=== PATIENT | female | born 1965 | race African-American/Black ===

== ENCOUNTER 2018-07-11 13:51 | Observation (INO) | payer OTHER ==
--- NOTE | 2018-07-11 13:59 | PDOC ---
History of Present Illness - General Chief Complaint: Chest Pain Stated Complaint: CHEST PAIN Time Seen by Provider: 07/11/18 13:59 History Source: Patient, Spouse Exam Limitations: No Limitations - History of Present Illness Initial Comments: Pt, with PMH of "an arrhythmia," HTN and asthma, presents with complaints of L- sided headache, L-body numbness, R-sided blurry vision, palpitations, and L- sided chest pain. The pt states these symptoms started Friday morning (07/06/2018 ) and have worsened in severity. The headache is intermittent, lasts about 1 hour, is throbbing in quality, and is limited to the L side of her head. The head pain is associated with light-headedness, R-sided blurry vision ("like objects are wavy") and L-sided numbness over her face and L-side of body. The chest pain is intermittent, is sharp, lasts about one minute, and is worse with deep breaths. She has also noticed palpitations that come and go. She has never had this pain before, has no history of migraines or vision changes, and the chest "tightness" is different from her usual asthma symptoms. She is not on any blood thinner medications. She denies any fevers/chills, LOC, falls or recent trauma, weakness of her muscles, SOB, abdominal pain, urinary symptoms, diarrhea, or joint/leg swelling. 07/11/18 18:10 07/11/18 18:23 Past History - Travel Traveled outside of the country in the last 30 days: No Close contact w/someone who was outside of country & ill: No - Past Medical History Allergies/Adverse Reactions: Allergies Allergy/AdvReac Type Severity Reaction Status Date / Time ondansetron HCl Allergy Intermediate Rash Verified 07/11/18 13:53 [From Zofran (as hydrochloride)] Home Medications: Ambulatory Orders Amlodipine Besylate [Norvasc -] 25 mg PO DAILY 06/08/16 Metoprolol Tartrate 10 mg PO DAILY 06/08/16 Anemia: Yes Asthma: Yes Cancer: No Cardiac Disorders: Yes (PALPITATIONS) CVA: No COPD: No DVT: No Dementia: No Diabetes: No GI Disorders: No Disorders: No HTN: Yes Hypercholesterolemia: No Liver Disease: No Seizures: No Thyroid Disease: No - Surgical History Abdominal Surgery: Yes (RT. F.TUBE REMOVED) Orthopedic Surgery: Yes (ANKLE SX RIGHT) - Reproductive History (#): 3 Para: 1 Therapeutic (s) & number: Yes Spontaneous : 1 - Immunization History Immunization Up to Date: Yes - Suicide/Smoking/Psychosocial Hx Smoking Status: Yes Smoking History: Current every day smoker Have you smoked in the past 12 months: Yes Number of Cigarettes Smoked Daily: 7 Information on smoking cessation initiated: Yes 'Breaking Loose' booklet given: 07/11/18 Hx Alcohol Use: No Drug/Substance Use Hx: No Substance Use Type: None Hx Substance Use Treatment: Yes (21 YRS AGO) Review of Systems - Review of Systems Able to Perform ROS?: Yes Is the patient limited Kyrgyz proficient: No Constitutional: Yes: Weight Stable. No: Chills, Diaphoresis, Fever, Loss of Appetite, Weakness HEENTM: Yes: Blurred Vision, Recent change in vision. No: Eye Pain, Double Vision, Nose Congestion, Hearing Loss, Throat Swelling, Difficulty Swallowing Respiratory: No: Cough, Orthopnea, Shortness of Breath Cardiac (ROS): Yes: Chest Pain ("pulling" chest pain/tightness), Irregular Heart Rate (history of "arrhythmia"), Lightheadedness, Palpitations, Chest Tightness. No: Edema, Syncope ABD/GI: No: Abdominal Distended, Blood Streaked Bowels, Constipated, Diarrhea, Nausea, Poor Appetite, Poor Fluid Intake, Vomiting, Indigestion : No: Burning, Dysuria, Frequency, Hematuria, Pain, Urgency Musculoskeletal: No: Back Pain, Joint Pain, Neck Pain Integumentary: No: Erythema, Rash Neurological: Yes: Headache, Numbness. No: Paresthesia, Pre-Existing Deficit, Seizure, Tingling, Tremors, Weakness, Unsteady Gait, Ataxia, Dizziness Psychiatric: No: Sleep Pattern Change, Change in Appetite Endocrine: No: Increased Urine, Change in Weight Hematologic/Lymphatic: No: Anemia, Blood Clots, Easy Bleeding All Other Systems: Reviewed and Negative *Physical Exam - Vital Signs Last Vital Signs Temp Pulse Resp BP Pulse Ox 98.0 F 92 H 18 188/91 99 07/11/18 13:53 07/11/18 13:53 07/11/18 13:53 07/11/18 13:53 07/11/18 13:53 - Physical Exam General Appearance: Yes: Nourished, Appropriately Dressed, Moderate Distress ( Pt can ambulate with help of , HTN, complaining of head pain), Obese HEENT: positive: EOMI, SYLVIA, Normal ENT Inspection, Normal Voice, Symmetrical, Pharynx Normal, Hearing Grossly Normal. negative: Photophobia, Scleral Icterus (R), Scleral Icterus (L), Tonsillar Exudate, Tonsillar Erythema Neck: positive: Trachea midline, Normal Thyroid, Supple. negative: Tender, Rigid, Carotid bruit, Decreased range of motion, Stridor, Lymphadenopathy (R), Lymphadenopathy (L), Rigidity Respiratory/Chest: positive: Chest Tender (reproducible chest tenderness over L superior chest wall (at apex). Tenderness with deep breaths. ), Lungs Clear, Normal Breath Sounds. negative: Respiratory Distress, Accessory Muscle Use Cardiovascular: positive: Regular Rhythm, Regular Rate, S1, S2. negative: Edema , JVD, Murmur Vascular Pulses: Carotid (R): 4+, Carotid (L): 4+ Gastrointestinal/Abdominal: positive: Normal Bowel Sounds, Flat, Soft. negative : Tender, Organomegaly, Pulsatile Mass, Guarding, Rebound, Tenderness Rectal Exam: positive: deferred Lymphatic: negative: Adenopathy, Tenderness Musculoskeletal: positive: Normal Inspection. negative: CVA Tenderness, Decreased Range of Motion Extremity: positive: Normal Capillary Refill, Normal Inspection, Normal Range of Motion, Pelvis Stable. negative: Tender, Cyanosis, Pedal Edema, Calf Tenderness, Erythema Integumentary: positive: Normal Color, Dry, Warm. negative: Clammy, Diaphoresis , Petechiae, Rash Neurologic: positive: Fully Oriented, Alert, Normal Mood/Affect, Normal Response , Motor Strength 5/5 (no motor drift in extremities x4. RLE jacquard card lacer strength and hip flexion slightly stronger than LLE. ), Abnormal Cranial NS (Decreased sensation V1-V3 L side of face, decreased sensation to touch over L arm and L leg. ), Numbness, Sensory Deficit. 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, EOM Palsy, Facial Droop, Finger to Nose, Confused, Disoriented, Depressed Affect Heart Score/ECG Review - History History: Slightly suspicious - Electrocardiogram EKG: Normal - Age Age: 45-65 - Risk Factors Risk Factors Heart Score: Yes Hx Hypertension, Yes Smoking History Based on the list above the patient has:: 1-2 risk factors - Troponin Troponin: </= normal limit - Score Heart Score - Total: 2 - ECG Intrepretation Rhythm: Regular Rhythm - Deep Run Deep Run: Normal - P and SD Prominent R with upright T in V1 (true posterior GA): No Delta Wave(s) Present: No WPW: No - QRS Poor R Wave Progression: No Q Wave Present: No - ST and T Early Repolarization: No Non Specific ST-T Wave changes: No Flattened T Waves: No Prolonged Q-T Interval: No Comment:: LVH, no depressed ST segment when looking at T-P interval. ECG unchanged from prior. 07/11/18 19:13 - ECG Impressions Normal ECG: No Non-specific ST Elevation: No Ischemic Changes: No Bradycardia: No Torsades lauren Pointes: No WPW: No Comment:: 07/11/18 19:14 unchanged from prior. ED Treatment Course - LABORATORY CBC & Chemistry Diagram: 07/11/18 14:50 07/11/18 14:50 - RADIOLOGY Radiology Studies Ordered: non-contrast Head CT: no acute intracranial pathology. 07/11/18 16:59 Medical Decision Making - Medical Decision Making Pt seen at bedside, also seen by Dr. Castañeda. Pt complains of blurry vision in R eye , L-sided head pain, decreased sensation over L side of body, and L-sided chest pain. Chest pain is reproducible with palpation over L chest wall. ECG showed LVH. CBC, CMP, troponin, UA + urine preg, portable chest x-ray, and non- contrast head CT ordered. CBC and CMP WNL (slightly elevated alk phos, which is non-specific). Troponin negative, cardiac cause/ACS unlikely. Urine b-hcg and UA negative for and infection. Pt going to CT scan now. 07/11/18 16:19 CT scan showed no acute pathology. Ordered 325 mg PO aspirin. Will call neurology for consult (Dr. Mcwilliams) and admit for observation. Sending blog and paging Dr. Mcwilliams. 07/11/18 16:58 Dr. Mcwilliams suggested 325 mg PO aspirin and MRI. He will follow the pt. Spoke to hospitalist, who will admit to Tele/Obs (attending Dr. Hartley). MRI able to take pt to MRI now. Provided 1 mg ativan for sedation (pt had prior MRI and was unable to tolerate). 07/11/18 18:08 Hospitalist at bedside and pt being taken for MRI. 07/11/18 18:46 *DC/Admit/Observation/Transfer Diagnosis at time of Disposition: Atypical chest pain, Numbness Headache Qualifiers: Headache type: unspecified Headache chronicity pattern: acute headache Intractability: intractable Qualified Code(s): R51 - Headache - Discharge Dispostion Condition at time of disposition: Stable Decision to Admit order: Yes - Referrals Referrals: Neri Muñiz MD [Primary Care Provider] - - Patient Instructions - Post Discharge Activity
--- NOTE | 2018-07-11 14:20 | PDOC ---
Attending Attestation - Resident Resident Name: Priyanka Perez - ED Attending Attestation I have performed the following: I have examined & evaluated the patient, The case was reviewed & discussed with the resident, I agree w/resident's findings & plan, Exceptions are as noted - HPI HPI: 07/11/18 14:40 53y F hx of htn, asthma presents with complaint of chest pain, headache, palpitations, blurry R vision, intermittently for the past 5 days. Pt states she had mid L side dheadache that she cannot expand upon, on friday it was associated wit hblurry right vision, and intermitent sharp chest pain malorie tlasts for a second before resolving. The sypm,toms resolved on friday but reucrred today. Pt endorses palpitations that has been chronic for years malorie tis unchanged. Th epatient denies any associated sob, diaphoresis, n/v, abd pain , back pain, diarrhea, dysuria, frequency, hematuria. No recent head injury, or falls. Currenlty the pt states she has no chest pain. GENERAL: The patient is awake, alert, and fully oriented, Nontoxic - in no acute distress. HEAD: Normocephalic, atraumatic, mild tenderness to her L scalp EYES: extraocular movements intact, sclera anicteric, conjunctiva clear. ENT: Normal voice, Moist mucous membranes NECK: Normal range of motion, supple, no bruits LUNGS: Breath sounds equal, clear to auscultation bilaterally. No wheezes, no rhonchi, no rales. HEART: Regular rate and rhythm, normal S1 and S2 without murmur, rub or gallop. ABDOMEN: Soft, nontender No guarding, no rebound. No CVA tenderness EXTREMITIES: Normal range of motion, no edema. No clubbing or cyanosis. No cords, erythema, or tenderness. 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 SKIN: Warm, Dry, normal turgor, ddx: cva, atypical acs, migraine, afib-->cva will ck ct head, trops, labs, cxr, ekg will give reglan for headache will reassess, anticipate obs & neuro consult Heart Score/ECG Review - ECG Impressions Comment:: 07/11/18 14:57 Twelve-lead EKG was performed and reviewed by me. There is normal sinus rhythm with a normal rate. Rate of 93 Left Ventricular hypertrophy T wave inversion in inferior leads (III, avF) No significant change was compared with EKG dated 04/01/2016
[2018-07-11] MEDS ORDERED: METOCLOPRAMIDE HCL INJECTION 10 MG/2 ML VIAL IVPUSH ONE (14:42)
[2018-07-11] MEDS ORDERED: ACETAMINOPHEN 325 MG TABLET (FP) PO ONE (14:42)
[2018-07-11 14:57] LABS: BASO % 1.1 % (0-2.0); HEMATOCRIT 38.6 % (32.4-45.2); HEMOGLOBIN 12.9 GM/dL (10.7-15.3); LYMPH % 30.8 % (8-40); MCH 28.3 pg (25.7-33.7); MCHC 33.5 g/dl (32.0-36.0); MEAN CELL VOLUME 84.5 fl (80-96); MEAN PLT VOLUME 8.2 fl (7.5-11.1); MONO % 7.8 % (3.8-10.2); NEUT % 56.3 % (42.8-82.8); PLATELET COUNT 279 K/MM3 (134-434); RBC 4.57 M/mm3 (3.60-5.2); RDW 14.8 % (11.6-15.6)
[2018-07-11] MEDS ORDERED: ACETAMINOPHEN 325 MG TABLET (FP) ONE (15:05)
[2018-07-11] MEDS ORDERED: METOCLOPRAMIDE HCL INJECTION 10 MG/2 ML VIAL ONE (15:05)
[2018-07-11 15:17] LABS: ALBUMIN 3.5 g/dl (3.4-5.0); ANION GAP 5 (8-16); BILIRUBIN,TOTAL 0.2 mg/dL (0.2-1.0); BLOOD UREA NITROGEN 11 mg/dL (7-18); CALCIUM 8.6 mg/dL (8.5-10.1); CHLORIDE 108 mmol/L (98-107); CO2 29 mmol/L (21-32); GLUCOSE,RANDOM 92 mg/dL (74-106); POTASSIUM 3.5 mmol/L (3.5-5.1); SGOT/AST 20 U/L (15-37); SGPT/ALT 37 U/L (12-78); SODIUM 142 mmol/L (136-145); TOT PROT 7.5 g/dl (6.4-8.2)
[2018-07-11 15:19] LABS: ALK PHOS 169 U/L (45-117)
[2018-07-11 15:32] LABS: URINE APPEARANCE CLEAR; URINE BILIRUBIN NEGATIVE (<2.0 mg/dL); URINE COLOR LTYELLOW; URINE GLUCOSE (UA) NEGATIVE (NEGATIVE); URINE KETONE NEGATIVE (NEGATIVE); URINE LEUK ESTERASE NEGATIVE (NEGATIVE); URINE NITRITE NEGATIVE (NEGATIVE); URINE PROTEIN NEGATIVE (NEGATIVE); URINE UROBILINOGEN NEGATIVE mg/dL (0.2-1.0)
[2018-07-11 15:45] LABS: HCG,QUALITATIVE URINE NEGATIVE
[2018-07-11 15:47] LABS: EPI CELLS RARE /HPF (FEW); URINE MUCUS RARE
[2018-07-11 15:50] LABS: INR 1.01 (0.83-1.09); PROTHROMBIN TIME (PATIENT) 11.4 SEC (9.7-13.0)
[2018-07-11] MEDS ORDERED: ASPIRIN 325 MG TABLET PO ONE (16:55)
[2018-07-11] MEDS ORDERED: ASPIRIN 325 MG TABLET ONE (17:08)
[2018-07-11] MEDS ORDERED: LORazepam 2 MG/ML SDV VIAL ONE (17:55)
--- NOTE | 2018-07-11 19:58 | HP ---
CHIEF COMPLAINT: blurry vision, numbness, headache, chest pain PCP: Dr. Mean HISTORY OF PRESENT ILLNESS: The patient is a 53 yo f w/ PMH asthma and HTN who comes into the ED c/o headache, chest discomfort, right sided blurred vision and left sided numbness. The patient states that she was in her normal states of health until friday, when she began to have a sharp left sided chest pain and discomfort associated with palpitations. The patient states that she has has similar episodes of sharp pain and palpitations in the past, but the chest discomfort is new. These symptoms resolved spontaneously. This morning at approx. 11 am, the patient felt an acute onset of right sided headache associated with left sided numbness and right sided blurred vision. The numbness extended from her face down to the feet. Patient denies weakness, facial droop, slurred speech, abdominal pain, SOB , fevers, chills. ER course was notable for: (1) CT head negative (2) Neuro consult: ASA 325, MRI brain (3) EKG showing LVH, unchanged from previous Recent Travel: none PAST MEDICAL HISTORY: see HPI PAST SURGICAL HISTORY: Right ankle surgery for fracture repair tubal ligation Social History: Smoking: smokes 10 cigarettes per day for 37 years Alcohol: denies Drugs: former use, quit 25 years ago Family History: diabetes Allergies ondansetron HCl [From Zofran (as hydrochloride)] Allergy (Intermediate, Verified 07/11/18 13:53) Rash HOME MEDICATIONS: Home Medications Medication Instructions Recorded Amlodipine Besylate [Norvasc -] 25 mg PO DAILY 06/08/16 Metoprolol Tartrate 10 mg PO DAILY 06/08/16 REVIEW OF SYSTEMS CONSTITUTIONAL: Absent: fever, chills, diaphoresis, generalized weakness, malaise, loss of appetite, weight change HEENT: Absent: rhinorrhea, nasal congestion, throat pain, throat swelling, difficulty swallowing, mouth swelling, ear pain, eye pain, visual changes CARDIOVASCULAR: Absent: syncope, irregular heart rate, lightheadedness, peripheral edema RESPIRATORY: Absent: cough, shortness of breath, dyspnea with exertion, orthopnea, wheezing, stridor, hemoptysis GASTROINTESTINAL: Absent: abdominal pain, abdominal distension, nausea, vomiting, diarrhea, constipation, melena, hematochezia GENITOURINARY: Absent: dysuria, frequency, urgency, hesitancy, hematuria, flank pain, genital pain MUSCULOSKELETAL: Absent: myalgia, arthralgia, joint swelling, back pain, neck pain SKIN: Absent: rash, itching, pallor HEMATOLOGIC/IMMUNOLOGIC: Absent: easy bleeding, easy bruising, lymphadenopathy, frequent infections ENDOCRINE: Absent: unexplained weight gain, unexplained weight loss, heat intolerance, cold intolerance NEUROLOGIC: Absent: focal weakness, seizure, mental status changes, bladder or bowel incontinence PSYCHIATRIC: Absent: anxiety, depression, suicidal or homicidal ideation, hallucinations. PHYSICAL EXAMINATION Vital Signs - 24 hr 07/11/18 07/11/18 07/11/18 13:53 14:29 18:00 Temperature 98.0 F 98.1 F Pulse Rate 92 H Pulse Rate [ 70 Left Radial] Respiratory 18 17 Rate Blood Pressure 188/91 Blood Pressure 157/76 [Right Arm] O2 Sat by Pulse 99 100 97 Oximetry (%) GENERAL: Awake, alert, and fully oriented, in no acute distress. HEAD: Normal with no signs of trauma. EYES: Pupils equal, round and reactive to light, dilated, extraocular movements intact, sclera anicteric, conjunctiva clear. No lid lag. There are deficits in the medial and lateral aspect of the superior visual field b/l EARS, NOSE, THROAT: Ears normal, nares patent, oropharynx clear without exudates. Moist mucous membranes. NECK: Normal range of motion, supple without lymphadenopathy, JVD, or masses. LUNGS: Breath sounds equal, clear to auscultation bilaterally. No wheezes, and no crackles. No accessory muscle use. HEART: Regular rate and rhythm, normal S1 and S2 without murmur, rub or gallop. ABDOMEN: Soft, nontender, not distended, normoactive bowel sounds, no guarding, no rebound, no masses. No hepatomegaly or splenomegaly. UPPER EXTREMITIES: 2+ pulses, warm, well-perfused. No cyanosis. No clubbing. No peripheral edema. LOWER EXTREMITIES: 2+ pulses, warm, well-perfused. No calf tenderness. No peripheral edema. NEUROLOGICAL: Cranial nerves II-XII intact. Normal speech. Rhomberg sign +, gait not assessed. There is decreased sensation along the whole left side. Strength 5/5 on right and in both LE, 4/5 in LUE PSYCHIATRIC: Cooperative. Good eye contact. Appropriate mood and affect. SKIN: Warm, dry, normal turgor, no rashes or lesions noted, normal capillary refill. Laboratory Results - last 24 hr 07/11/18 07/11/18 07/11/18 14:50 14:50 14:50 WBC 7.0 RBC 4.57 Hgb 12.9 Hct 38.6 MCV 84.5 MCH 28.3 MCHC 33.5 RDW 14.8 Plt Count 279 D MPV 8.2 Absolute Neuts (auto) 3.9 Neutrophils % 56.3 Lymphocytes % 30.8 Monocytes % 7.8 Eosinophils % 4.0 Basophils % 1.1 Nucleated RBC % 0 PT with INR INR PTT (Actin FS) 33.0 Sodium 142 Potassium 3.5 Chloride 108 H Carbon Dioxide 29 Anion Gap 5 L BUN 11 Creatinine 1.0 Creat Clearance w eGFR 58.45 Random Glucose 92 Calcium 8.6 Total Bilirubin 0.2 AST 20 ALT 37 Alkaline Phosphatase 169 H Troponin I < 0.02 Total Protein 7.5 Albumin 3.5 Urine Color Urine Appearance Urine pH Ur Specific [place] Urine Protein Urine Glucose (UA) Urine Ketones Urine Blood Urine Nitrite Urine Bilirubin Urine Urobilinogen Ur Leukocyte Esterase Urine WBC (Auto) Urine RBC (Auto) Ur Epithelial Cells Urine Mucus Urine HCG, Qual 07/11/18 07/11/18 15:24 15:43 WBC RBC Hgb Hct MCV MCH MCHC RDW Plt Count MPV Absolute Neuts (auto) Neutrophils % Lymphocytes % Monocytes % Eosinophils % Basophils % Nucleated RBC % PT with INR 11.40 INR 1.01 PTT (Actin FS) Sodium Potassium Chloride Carbon Dioxide Anion Gap BUN Creatinine Creat Clearance w eGFR Random Glucose Calcium Total Bilirubin AST ALT Alkaline Phosphatase Troponin I Total Protein Albumin Urine Color Ltyellow Urine Appearance Clear Urine pH 6.0 Ur Specific [place] 1.018 Urine Protein Negative Urine Glucose (UA) Negative Urine Ketones Negative Urine Blood 1+ H Urine Nitrite Negative Urine Bilirubin Negative Urine Urobilinogen Negative Ur Leukocyte Esterase Negative Urine WBC (Auto) 1 Urine RBC (Auto) 1 Ur Epithelial Cells Rare Urine Mucus Rare Urine HCG, Qual Negative ASSESSMENT/PLAN: The patient is a 53 yo f w/ PMH HTN who comes into the ED c/o blurred vision, chest pain, numbness and headache. #neurological deficits and headache possibly 2/2 occipital CVA vs complex migraine -Neruology consulted; Dr. Mcwilliams -s/p ASA 325 in ED -will obtain carotid doppler -will obtain Echo -PT eval -speech and swallow eval not indicated as patient is speaking without slurring words and is without CN deficits. -will begin lipitor 80mg HS -tylenol 650 Q6h PRN headache -MRI brain taken; f/u read #chest pain/discomfort w/ palpitations -EKG without acute changes -f/u echo -trop negative x1, will trend q6 #Prophy -Heparin SQ 5K units TID #FEN -no fluids indicated -lytes WNl -sodium controlled diet #Dispo -admit tele stroke obs Visit type - Emergency Visit Emergency Visit: Yes ED Registration Date: 07/11/18 Care time: The patient presented to the Emergency Department on the above date and was hospitalized for further evaluation of their emergent condition. - New Patient This patient is new to me today: Yes Date on this admission: 07/11/18 - Critical Care Critical Care patient: No Hospitalist Screening - Colonoscopy Questionnaire Colonoscopy Questionnaire: Colonoscopy Questionnaire - Patient: 50 - 75 years old and never had a screening colonoscopy: Unknown History of colon or rectal polyps, or CA: Unknown History of IBD, Crohn's disease or UC: Unknown History of abdominal radiation therapy as a child: Unknown - Relative: 1 with colon or rectal CA, or polyps at age 60 or younger: Unknown Colon or rectal CA diagnosed at age 45 or younger: Unknown Multiple relatives with colon or rectal CA: Unknown - Outcome: Screening Result: Negative Screen
[2018-07-11] MEDS ORDERED: ATORVASTATIN CA 80 MG TABLET (FP) ONE (21:49)
[2018-07-11] MEDS: ATORVASTATIN CA 80 MG TABLET (FP) PO SCH (21:52)
--- NOTE | 2018-07-11 22:01 | PN ---
Teaching Attending Note Name of Resident: Amadeo Horowitz ATTENDING PHYSICIAN STATEMENT I saw and evaluated the patient. I reviewed the resident's note and discussed the case with the resident. I agree with the resident's findings and plan as documented. 53F with right sided headache, left sided weakness, along with chest and left arm pain. on exam strength in bilateral upper and lower extremities are equal, with minimal difference in handgrip with left handgrip slightly weaker sensation intact bilaterally, though she endorses left side sensation feels different prioprioception intact bilaterallly unclear etiology, possibly CVA vs complicated migraine f/u MRI Brain results Neurology eval aspirin , statin ECHO, carotid doppler
[2018-07-11 23:46] VITALS: BMI 40.9
[2018-07-12] MEDS: HEPARIN NA (PORCINE) 5,000 UNITS/ML 1ML VIAL SQ SCH ×3 (05:57→21:44)
[2018-07-12 06:20] LABS: BASO % 0.4 % (0-2.0); EOS % 4.6 % (0-4.5); HEMATOCRIT 36.4 % (32.4-45.2); HEMOGLOBIN 12.1 GM/dL (10.7-15.3); LYMPH % 35.3 % (8-40); MCH 28.2 pg (25.7-33.7); MCHC 33.2 g/dl (32.0-36.0); MEAN CELL VOLUME 84.8 fl (80-96); MEAN PLT VOLUME 8.2 fl (7.5-11.1); MONO % 7.2 % (3.8-10.2); NEUT % 52.5 % (42.8-82.8); PLATELET COUNT 284 K/MM3 (134-434); RDW 14.9 % (11.6-15.6); WHITE BLOOD COUNT 7.1 K/mm3 (4.0-10.0)
[2018-07-12 06:42] LABS: ALBUMIN 3.3 g/dl (3.4-5.0); ANION GAP 9 (8-16); CHLORIDE 109 mmol/L (98-107); CO2 25 mmol/L (21-32); CREATININE 0.9 mg/dL (0.55-1.02); MAGNESIUM 2.1 mg/dL (1.8-2.4); POTASSIUM 3.9 mmol/L (3.5-5.1); SGOT/AST 22 U/L (15-37); SGPT/ALT 38 U/L (12-78); SODIUM 143 mmol/L (136-145); TOT PROT 7.2 g/dl (6.4-8.2)
[2018-07-12 06:51] LABS: INR 1.01 (0.83-1.09); PROTHROMBIN TIME (PATIENT) 11.4 SEC (9.7-13.0)
[2018-07-12 06:53] LABS: ALK PHOS 152 U/L (45-117); BILIRUBIN,TOTAL 0.3 mg/dL (0.2-1.0); BLOOD UREA NITROGEN 11 mg/dL (7-18); CHOLESTEROL 182 mg/dL (50-200); GLUCOSE,RANDOM 87 mg/dL (74-106); HDL CHOLESTEROL 43 mg/dL (40-60); PHOSPHOROUS 4.1 mg/dL (2.5-4.9); TRIGLYCERIDES 113 mg/dL (35-160)
[2018-07-12] MEDS: NICOTINE 7 MG/24 HOURS TOPICAL PATCH TD SCH (09:34)
[2018-07-12] MEDS: ACETAMINOPHEN 325 MG TABLET (FP) PO PRN (09:35)
[2018-07-12] MEDS ORDERED: amLODIPine BESYLATE 5 MG TABLET (FP) PO SCH (10:00)
[2018-07-12] MEDS ORDERED: amLODIPine BESYLATE 10 MG TABLET (FP) PO SCH (10:00)
[2018-07-12] MEDS ORDERED: METOPROLOL TARTRATE 25 MG TABLET (FP) PO SCH (10:00)
[2018-07-12] MEDS ORDERED: metoPROLOL SUCCINATE 25 MG TAB.SR.24H (FP) PO SCH (10:00)
--- NOTE | 2018-07-12 16:16 | PN ---
Physical Exam: SUBJECTIVE: Patient seen and examined. She complains of dizziness and feels unsteady when walking. Dizziness is worse with movement, especially turning her head. OBJECTIVE: Vital Signs Period Temp Pulse Resp BP Sys/Newell Pulse Ox Last 24 Hr 98 F-98.4 F 66-85 17-18 151-169/58-90 97-97 GENERAL: The patient is awake, alert, and fully oriented, in no acute distress. LUNGS: Breath sounds equal, clear to auscultation bilaterally, no wheezes, no crackles, no accessory muscle use. HEART: Regular rate and rhythm, S1, S2 without murmur, rub or gallop. ABDOMEN: Obese, soft, nontender, nondistended, normoactive bowel sounds, no guarding, no rebound, no hepatosplenomegaly, no masses. EXTREMITIES: 2+ pulses, warm, well-perfused, no edema. NEUROLOGICAL: Cranial nerves II through XII grossly intact. Normal speech. Strength 5/5 in all extremities. Sensation intact. Gait not observed. Laboratory Results - last 24 hr 07/11/18 07/12/18 07/12/18 21:00 05:30 05:30 WBC 7.1 RBC 4.30 Hgb 12.1 Hct 36.4 MCV 84.8 MCH 28.2 MCHC 33.2 RDW 14.9 Plt Count 284 MPV 8.2 Absolute Neuts (auto) 3.7 Neutrophils % 52.5 Lymphocytes % 35.3 Monocytes % 7.2 Eosinophils % 4.6 H Basophils % 0.4 Nucleated RBC % 0 PT with INR 11.40 INR 1.01 Sodium Potassium Chloride Carbon Dioxide Anion Gap BUN Creatinine Creat Clearance w eGFR Random Glucose Calcium Phosphorus Magnesium Total Bilirubin AST ALT Alkaline Phosphatase Troponin I < 0.02 Total Protein Albumin Triglycerides Cholesterol Total LDL Cholesterol HDL Cholesterol 07/12/18 05:30 WBC RBC Hgb Hct MCV MCH MCHC RDW Plt Count MPV Absolute Neuts (auto) Neutrophils % Lymphocytes % Monocytes % Eosinophils % Basophils % Nucleated RBC % PT with INR INR Sodium 143 Potassium 3.9 Chloride 109 H Carbon Dioxide 25 Anion Gap 9 BUN 11 Creatinine 0.9 Creat Clearance w eGFR > 60 Random Glucose 87 Calcium 9.0 Phosphorus 4.1 Magnesium 2.1 Total Bilirubin 0.3 AST 22 ALT 38 Alkaline Phosphatase 152 H D Troponin I Total Protein 7.2 Albumin 3.3 L Triglycerides 113 Cholesterol 182 Total LDL Cholesterol 121 H HDL Cholesterol 43 Active Medications Generic Name Dose Route Start Last Admin Trade Name Luisq PRN Reason Stop Dose Admin Acetaminophen 650 mg 07/11/18 19:21 07/12/18 09:35 Tylenol - PO 650 mg Q6H PRN Administration PAIN LEVEL 6-10 Atorvastatin Calcium 80 mg 07/11/18 22:00 07/11/18 21:52 Lipitor - PO 80 mg HS MIRIAN Administration Heparin Sodium (Porcine) 5,000 unit 07/12/18 06:00 07/12/18 13:12 Heparin - SQ 5,000 unit TID MIRIAN Administration Nicotine 7 mg 07/12/18 10:00 07/12/18 09:34 Nicoderm Patch - TD 7 mg DAILY MIRIAN Administration ASSESSMENT/PLAN: This is a 53 year old woman with a history of HTN who presented to the ED with blurred vision, chest pain, numbness, and headache. 1. Possible TIA, possible migraine - MRI shows ischemic white matter changes of both cerebral hemispheres, no acute infarct - Carotid dopplers show no hemodynamically significant stenosis - Continue Lipitor - Add aspirin - Smoking cessation - Neurology evaluation - Echocardiogram 2. Dizziness - Possible vertigo vs migraine - Neurology evaluation 3. Chest pain - Resolved - No evidence of ACS 4. HTN - Restart Norvasc, Toprol XL if ok with neurology 5. Nicotine dependence - Continue nicotine patch Visit type - Emergency Visit Emergency Visit: Yes ED Registration Date: 07/11/18 Care time: The patient presented to the Emergency Department on the above date and was hospitalized for further evaluation of their emergent condition. - New Patient This patient is new to me today: Yes Date on this admission: 07/12/18 - Critical Care Critical Care patient: No - Discharge Referral Referred to [facility] No
--- NOTE | 2018-07-12 18:12 | CON.NEURO ---
Consult - Past Medical History ...LMP: 09/14/15 ...: No - Alcohol/Substance Use Hx Alcohol Use: No - Smoking History Smoking history: Current every day smoker Have you smoked in the past 12 months: Yes Aproximately how many cigarettes per day: 7 Home Medications - Allergies Allergies/Adverse Reactions: Allergies Allergy/AdvReac Type Severity Reaction Status Date / Time ondansetron HCl Allergy Intermediate Rash Verified 07/11/18 13:53 [From Zofran (as hydrochloride)] - Home Medications Home Medications: Ambulatory Orders Amlodipine Besylate [Norvasc -] 10 mg PO DAILY 06/08/16 Metoprolol Succinate [Toprol Xl] 25 mg PO DAILY 07/12/18 Physical Exam-Neuro Vital Signs: Vital Signs Temperature 98 F 07/12/18 10:00 Pulse Rate 66 07/12/18 10:00 Respiratory Rate 18 07/12/18 10:00 Blood Pressure 166/90 07/12/18 10:00 O2 Sat by Pulse Oximetry (%) 97 07/12/18 03:25 Labs: CBC, BMP 07/12/18 05:30 07/12/18 05:30 INR, PTT INR 1.01 (0.83-1.09) 07/12/18 05:30 Assessment/Plan cc Headhace , numbness and chest discomfort and blurring of vision HPI 53 year old female history of htn came with blurring of vision, headhace and left sided numbness. Her bp has improved and numbness has improved. She describes headhace as left sided throbbing pain, with blurring of vision. Her mri of brain is normal, and carotid ultrasound is normal. She do not suffer from migraine Pmh as above. PAST SURGICAL HISTORY: Right ankle surgery for fracture repair tubal ligation Social History: Smoking: smokes 10 cigarettes per day for 37 years Alcohol: denies Drugs: former use, quit 25 years ago Family History: diabetes Allergies ondansetron HCl [From Zofran (as hydrochloride)] Allergy (Intermediate, Verified 07/11/18 13:53) Rash HOME MEDICATIONS: Home Medications Medication Instructions Recorded Amlodipine Besylate [Norvasc -] 25 mg PO DAILY 06/08/16 Metoprolol Tartrate 10 mg PO DAILY 06/08/16 Neurological Examination Alert oriented x 3, speech is normal CN all intact eomi,l pupils reactive no motor weakness and sensation is noraml gait and coordination is noraml mri showed white matter disease, Assessment- Most likely tia, symptoms resolved and risk factor include htn, obesity and mri showed white matter disease Plan-- suggest to add aspirin and continue statin - work up has been negative - Life style modifications and stroke education is discussed bp medication can be resumed, if ok with primary follow up outpatient Thanking you so much Leo Mcwilliams md
[2018-07-12] MEDS: ASPIRIN 81 MG CHEWABLE TABLETS PO SCH (18:26)
[2018-07-12] MEDS: metoPROLOL SUCCINATE 25 MG TAB.SR.24H (FP) PO SCH (18:50)
[2018-07-12] MEDS: amLODIPine BESYLATE 10 MG TABLET (FP) PO SCH (18:50)
[2018-07-12] MEDS: ATORVASTATIN CA 80 MG TABLET (FP) PO SCH (21:44)
[2018-07-13] MEDS: HEPARIN NA (PORCINE) 5,000 UNITS/ML 1ML VIAL SQ SCH ×2 (06:08→13:22)
[2018-07-13] MEDS: metoPROLOL SUCCINATE 25 MG TAB.SR.24H (FP) PO SCH (09:58)
[2018-07-13] MEDS: amLODIPine BESYLATE 10 MG TABLET (FP) PO SCH (09:58)
[2018-07-13] MEDS: NICOTINE 7 MG/24 HOURS TOPICAL PATCH TD SCH (09:58)
[2018-07-13] MEDS: ASPIRIN 81 MG CHEWABLE TABLETS PO SCH (09:58)
[2018-07-13] MEDS: ACETAMINOPHEN 325 MG TABLET (FP) PO PRN (13:21)
--- NOTE | 2018-07-13 13:46 | PN ---
Progress Note (short form) - Note Progress Note: HPI 53 year old female history of htn came with blurring of vision, headhace and left sided numbness. Her bp has improved and numbness has improved. She describes headhace as left sided throbbing pain, with blurring of vision. Her mri of brain is normal, and carotid ultrasound is normal. She do not suffer from migraine symptoms resolved, mri of brain no acute findings, and carotid ultrasound unremarkable Neurological Examination Alert oriented x 3, speech is normal CN all intact eomi,l pupils reactive no motor weakness and sensation is noraml gait and coordination is noraml mri showed white matter disease, carotid ultrasound unremarkable Assessment- Most likely tia, symptoms resolved and risk factor include htn, obesity and mri showed white matter disease Plan-- suggest to add aspirin and continue statin - work up has been negative - Life style modifications and stroke education is discussed -bp control, follow up outpatient Thanking you so much Leo Mcwilliams md
--- NOTE | 2018-07-13 16:08 | PN ---
Teaching Attending Note Name of Resident: Yenny Toscano ATTENDING PHYSICIAN STATEMENT I saw and evaluated the patient. I reviewed the resident's note and discussed the case with the resident. I agree with the resident's findings and plan as documented. SUBJECTIVE: Dizziness is better. OBJECTIVE: Vital Signs Period Temp Pulse Resp BP Sys/Newell Pulse Ox Last 24 Hr 98.0 F-98.4 F 70-79 16-20 134-157/61-96 97-97 HEART: S1S2, RRR LUNGS: Clear ABDOMEN: Obese, soft, non-tender, non-distended, normal BS EXTREMITIES: No edema Current Medications Generic Name Dose Route Start Last Admin Trade Name Freq PRN Reason Stop Dose Admin Acetaminophen 650 mg 07/11/18 19:21 07/13/18 13:21 Tylenol - PO 650 mg Q6H PRN Administration PAIN LEVEL 6-10 Amlodipine Besylate 10 mg 07/12/18 18:45 07/13/18 09:58 Norvasc - PO 10 mg DAILY MIRIAN Administration Aspirin 81 mg 07/12/18 18:15 07/13/18 09:58 Asa - PO 81 mg DAILY MIRIAN Administration Atorvastatin Calcium 80 mg 07/11/18 22:00 07/12/18 21:44 Lipitor - PO 80 mg HS MIRIAN Administration Heparin Sodium (Porcine) 5,000 unit 07/12/18 06:00 07/13/18 13:22 Heparin - SQ 5,000 unit TID MIRIAN Administration Metoprolol Succinate 25 mg 07/12/18 18:45 07/13/18 09:58 Toprol Xl - PO 25 mg DAILY MIRIAN Administration Nicotine 7 mg 07/12/18 10:00 07/13/18 09:58 Nicoderm Patch - TD 7 mg DAILY MIRIAN Administration ASSESSMENT AND PLAN: This is a 53 year old woman with a history of HTN who presented to the ED with blurred vision, chest pain, numbness, and headache. 1. Possible TIA, possible migraine - MRI shows ischemic white matter changes of both cerebral hemispheres, no acute infarct - Carotid dopplers show no hemodynamically significant stenosis - Echocardiogram shows normal LVSF, mild concentric LVH, normal RVSF, trace MR - Continue aspirin, Lipitor - Smoking cessation 2. Dizziness - Possible vertigo vs migraine 3. Chest pain - Resolved - No evidence of ACS 4. HTN - Continue Norvasc, Toprol XL 5. Nicotine dependence - Continue nicotine patch 6. Morbid obesity with BMI 40.9 7. Disposition - Ok for discharge home
--- NOTE | 2018-07-13 16:30 | DS ---
Physical Exam: SUBJECTIVE: Patient seen and examined at bedside. +L epigastric pain, sometimes worse with food. OBJECTIVE: Vital Signs Period Temp Pulse Resp BP Sys/Newell Pulse Ox Last 24 Hr 98.0 F-98.4 F 70-79 16-20 134-157/61-96 97-97 PHYSICAL EXAM GENERAL: Awake, alert, and fully oriented, in no acute distress. HEAD: Normal with no signs of trauma. EYES: Pupils equal, round and reactive to light, dilated, extraocular movements intact, sclera anicteric, conjunctiva clear. No lid lag. There are deficits in the medial and lateral aspect of the superior visual field b/l EARS, NOSE, THROAT: Ears normal, nares patent, oropharynx clear without exudates. Moist mucous membranes. NECK: Normal range of motion, supple without lymphadenopathy, JVD, or masses. LUNGS: Breath sounds equal, clear to auscultation bilaterally. No wheezes, and no crackles. No accessory muscle use. HEART: Regular rate and rhythm, normal S1 and S2 without murmur, rub or gallop.+ reproducible L chest pain. ABDOMEN: Soft, nontender, not distended, normoactive bowel sounds, no guarding, no rebound, no masses. No hepatomegaly or splenomegaly. UPPER EXTREMITIES: 2+ pulses, warm, well-perfused. No cyanosis. No clubbing. No peripheral edema. LOWER EXTREMITIES: 2+ pulses, warm, well-perfused. No calf tenderness. No peripheral edema. NEUROLOGICAL: Cranial nerves II-XII intact. Normal speech. There is decreased sensation along the whole left side. 5/5 muscle strength in u/l b/l extremities PSYCHIATRIC: Cooperative. Good eye contact. Appropriate mood and affect. SKIN: Warm, dry, normal turgor, no rashes or lesions noted, normal capillary refill. LABS HOSPITAL COURSE: Date of Admission:07/11/18 IMAGING: Carotid dopper: Mild atherosclerotic disease with no evidence of hemodynamically significant stenoses. MRI Brain: Ischemic changes white matter of both cerebral hemispheres sequela most probably to chronic migraines, hypertension or small vessel atherosclerosis. The no evidence acute infarction. No evidence of intra or extra -axial neoplasm. The cerebellopontine angles unremarkable CT Head: Normal CT scan of the head with no evidence of acute intracranial pathology Echo: LV normal in size. Mild concentric LVH. LV systolic fxn is normal. NO regional wall motion abnormalities noted. EF = 65-70%. RV systolic fxn is normal. L atrial size is normal. R atrial size is normal. Mild mitral annular calcification. Trace MR. Pulm artery systolic pressure is at least 33 mmHg assuming RA pressure of 3 mmHg. No pericardial effusion. 53F w/ pmhx of HTN presented in the ED with blurred vision, chest pain, numbness , and headache. Head CT was ordered and revealed no evidence of acute intrancranial pathology. Upon physical exam, pt was found to have R sided vision changes and decreased sensation on the L side of the body. Neuro was consulted. Upon neuro eval, pt was found to have a likely TIA as the cause of her symptoms. Pt was subsequently started on Aspirin and Lipitor. Pt underwent echo for further work up which was unremarkable for acute pathology. During her hospital stay, her symptoms stabilized. She was discharged with instructions to take Aspirin and Lipitor in addition to her home BP meds. Additionally, she was counseled on smoking cessation and prescribed nicotine patches. She was given recommendation to follow up with her primary care physician within 1 week. Date of Discharge: 07/13/18 Minutes to complete discharge: 36 Discharge Summary Reason For Visit: CHEST PAIN Condition: Improved - Instructions Diet, Activity, Other Instructions: You were admitted to the hospital for a transient ischemic attack (TIA) affecting your vision and sensation. You were seen by a neurologist and were given medication to help prevent a similar episode. Your symptoms subsequently improved. You are being discharged home with medications and recommendation to follow up with your primary care physician and neurologist. MEDICAL RECOMMENDATIONS Please start taking Aspirin 81 mg once a day by mouth. Please start taking Lipitor 80 mg at night by mouth. We have also prescribed you week's worth of nicotine patches. You can follow up with your primary care physician for further treatment. Please continue taking your home meds as prescribed. CONSULT RECOMMENDATIONS Please follow up with your primary care physician within 1 week. Please follow up with your neurologist, Dr. Mcwilliams, within 1 week. If you start to experience persistent chest pain, shortness of breath, or start to have slurred speech, facial droop, muscle weakness, numbness or tingling in your legs/arms, please proceed to your nearest emergency room immediately. Referrals: Leo Mcwilliams MD [Staff Physician] - 1 Week Neri Muñiz MD [Primary Care Provider] - 1 Week Disposition: HOME - Home Medications Comprehensive Discharge Medication List: Ambulatory Orders Amlodipine Besylate [Norvasc -] 10 mg PO DAILY 06/08/16 Metoprolol Succinate [Toprol Xl] 25 mg PO DAILY 07/12/18 Aspirin [ASA -] 81 mg PO DAILY #30 tab.chew 07/13/18 Atorvastatin Ca [Lipitor] 80 mg PO HS #30 tablet 07/13/18 Hydrocodone/Acetaminophen [Hydrocodone-Acetamin 10-325 mg] 10 - 325 mg PO ASDIR 07/13/18 Nicotine Patch [Nicoderm Patch -] 7 mg TD DAILY #7 patch 07/13/18 This patient is new to me today: Yes Date on this admission: 07/13/18 Emergency Visit: Yes ED Registration Date: 07/11/18 Care time: The patient presented to the Emergency Department on the above date and was hospitalized for further evaluation of their emergent condition. Critical Care patient: No - Discharge Referral Referred to [facility] Med P.C.: No
[2018-07-13 19:11] VITALS: BP 139/76; PULSE 64; TEMP 98
== END 2018-07-13 18:32 | disposition home or self-care (01) ==
LOC: JER 13:51 → JERBED 17:33 → J4W 23:33
PROVIDERS: ADMIT Internal Medicine; ATTEND Internal Medicine
PROC: 3E033GC Introduction of Other Therapeutic Substance into Peripheral Vein, Percutaneous Approach (ICD-10-PCS; principal; 2018-07-11)
PROC: 3E013GC Introduction of Other Therapeutic Substance into Subcutaneous Tissue, Percutaneous Approach (ICD-10-PCS; 2018-07-11)
DX: R07.89 Other chest pain (principal); R20.0 Anesthesia of skin; R00.2 Palpitations; R51 Headache; I10 Essential (primary) hypertension; J45.909 Unspecified asthma, uncomplicated; D64.9 Anemia, unspecified; F17.210 Nicotine dependence, cigarettes, uncomplicated; R42 Dizziness and giddiness; R26.81 Unsteadiness on feet; H53.8 Other visual disturbances; E66.9 Obesity, unspecified; Z68.41 Body mass index [BMI] 40.0-44.9, adult; R90.82 White matter disease, unspecified
CPT/HCPCS: 36415; 70450-TC; 70551-TC; 71045-TC-FY; 80053; 80061; 81003; 81015; 83721; 83735; 84100; 84484; 84703; 85025; 85610; 85730; 93306-TC; 93880-TC; 96372; 96374; 96375; 97116-GP; 97161-GP; 99285-25; G0378; J1644

== ENCOUNTER 2018-12-08 23:02 | Emergency (ER) | payer OTHER ==
[2018-12-08 23:24] VITALS: BP 177/87; PULSE 92; TEMP 98.1; BMI 40.6
--- NOTE | 2018-12-09 01:00 | PDOC ---
Patient Follow-up (Call Back) - Disposition Additional Instructions/Notes: Pt left before medical evaluation Called pt's listed number x3, no answer
== END 2018-12-09 03:08 | disposition left against medical advice (07) ==
LOC: JER 23:02
DX: Z53.21 Procedure and treatment not carried out due to patient leaving prior to being seen by health care provider (principal)
CPT/HCPCS: 99281-25

== ENCOUNTER 2018-12-09 13:21 | Emergency (ER) | payer OTHER ==
--- NOTE | 2018-12-09 13:38 | PDOC ---
Rapid Medical Evaluation Time Seen by Provider: 12/09/18 13:26 Medical Evaluation: Allergies Allergy/AdvReac Type Severity Reaction Status Date / Time ondansetron HCl Allergy Intermediate Rash Verified 12/08/18 23:24 [From Zofran (as hydrochloride)] 12/09/18 13:35 I have performed a brief in-person evaluation of this patient. The patient presents with a chief complaint of: SOB Pertinent physical exam findings: Expiratory wheezes. +coughing throughout exam I have ordered the following: influenza, urine The patient will proceed to the ED for further evaluation. Discharge Disposition - Diagnosis Shortness of breath - Referrals - Patient Instructions - Post Discharge Activity
[2018-12-09 13:39] VITALS: BP 141/84; PULSE 77; TEMP 98.5; BMI 40.6
[2018-12-09] MEDS ORDERED: ALBUTEROL SO4 2.5/IPRATROPIUM 0.5 INH SOL 3 ML VIAL.NEB. NEB ONE (13:47)
[2018-12-09] MEDS: ALBUTEROL SO4 2.5/IPRATROPIUM 0.5 INH SOL 3 ML VIAL.NEB. NEB SCH ×4 (13:50→14:56)
[2018-12-09] MEDS ORDERED: methylPREDNISolone NA SUCC 125 MG/2 ML VIAL IM ONE (13:56)
--- NOTE | 2018-12-09 14:07 | PDOC ---
History of Present Illness - General Chief Complaint: Respiratory Stated Complaint: ASTHMA Time Seen by Provider: 12/09/18 13:26 History Source: Patient Exam Limitations: Clinical Condition - History of Present Illness Initial Comments: 12/09/18 13:57 Patient with history of asthma present with complaint of persistent cough, nasal congestion, wheezing and shortness of breath since yesterday. Patient reported using rescue inhaler which has not help her symptoms. Patient denies fever chills, dizziness or headache. Patient denies any other symptoms Timing/Duration: 24 hours Past History - Past Medical History Allergies/Adverse Reactions: Allergies Allergy/AdvReac Type Severity Reaction Status Date / Time ondansetron HCl Allergy Intermediate Rash Verified 12/09/18 13:38 [From Zofran (as hydrochloride)] Home Medications: Ambulatory Orders Albuterol 2.5/Ipratropium 0.5 [Duoneb -] 1 neb NEB Q6H PRN #1 vial 12/09/18 Benzonatate [Tessalon Pearls -] 100 mg PO TID PRN #21 capsule 12/09/18 Ipratropium Keene 2 spray NS BID PRN #1 spray 12/09/18 Nebulizer and Compressor [Portable Nebulizer System] 1 each MC Q6H PRN #1 each 12/09/18 Prednisone [Deltasone] 20 mg PO BID 5 Days #10 tablet 12/09/18 Anemia: Yes Asthma: Yes Cancer: No Cardiac Disorders: Yes (PALPITATIONS) CVA: No COPD: No DVT: No Dementia: No Diabetes: No GI Disorders: No Disorders: No HTN: Yes Hypercholesterolemia: No Liver Disease: No Seizures: No Thyroid Disease: No - Surgical History Abdominal Surgery: Yes (RT. F.TUBE REMOVED) Orthopedic Surgery: Yes (ANKLE) - Reproductive History (#): 3 Para: 1 Therapeutic (s) & number: Yes Spontaneous : 1 - Immunization History Immunization Up to Date: Yes - Suicide/Smoking/Psychosocial Hx Smoking Status: Yes Smoking History: Current some day smoker Have you smoked in the past 12 months: No Number of Cigarettes Smoked Daily: 3 Information on smoking cessation initiated: Yes 'Breaking Loose' booklet given: 07/11/18 Hx Alcohol Use: No Drug/Substance Use Hx: No Substance Use Type: None Hx Substance Use Treatment: No Review of Systems - Review of Systems Able to Perform ROS?: Yes Is the patient limited Greek proficient: No Constitutional: No: Symptoms Reported, See HPI, Chills, Diaphoresis, Fever, Loss of Appetite, Malaise, Night Sweats, Weakness, Weight Stable, Unintentional Wgt. Loss, Unexplained wgt Loss, Other HEENTM: Yes: Symptoms Reported, See HPI, Nose Congestion. No: Eye Pain, Blurred Vision, Tearing, Recent change in vision, Double Vision, Cataracts, Ear Pain, Ocular Prothesis, Ear Discharge, Nose Pain, Tinnitus, Nose Bleeding, Hearing Loss, Throat Pain, Throat Swelling, Mouth Pain, Dental Problems, Difficulty Swallowing, Mouth Swelling, Other Respiratory: Yes: Symptoms reported, See HPI, Cough, Shortness of Breath, Wheezing. No: Orthopnea, SOB with Exertion, SOB at Rest, Stridor, Productive cough, Hemoptysis, Other Cardiac (ROS): No: Symptoms Reported, See HPI, Chest Pain, Edema, Irregular Heart Rate, Lightheadedness, Palpitations, Syncope, Chest Tightness, Other ABD/GI: No: Constipated, Diarrhea, Nausea, Vomiting Neurological: No: Headache, Dizziness All Other Systems: Reviewed and Negative *Physical Exam - Vital Signs Last Vital Signs Temp Pulse Resp BP Pulse Ox 98.5 F 77 19 141/84 97 12/09/18 13:37 12/09/18 13:37 12/09/18 13:37 12/09/18 13:37 12/09/18 13:37 - Physical Exam Comments: 12/09/18 14:07 GENERAL: Well developed, well nourished. Awake and alert. No acute distress. HEENT: Normocephalic, atraumatic. PERRLA, EOMI. No conjunctival pallor. Sclera are non-icteric. Moist mucous membranes. Oropharynx is clear. NECK: Supple. Full ROM. CARDIOVASCULAR: Regular rate and rhythm. No murmurs, rubs, or gallops. Distal pulses are 2+ and symmetric. PULMONARY: Moderate diffuse wheezing.No evidence of respiratory distress. No rales or rhonchi. ABDOMINAL: Soft. Non-tender. Non-distended. No rebound or guarding. No organomegaly. Normoactive bowel sounds. MUSCULOSKELETAL Normal range of motion at all joints. SKIN: Warm and dry. no cyanosis. Normal capillary refill. No rashes. No jaundice. NEUROLOGICAL: Alert, awake, appropriate. Gait is normal without ataxia. PSYCHIATRIC: Cooperative. Good eye contact. Appropriate mood General Appearance: Yes: Nourished, Appropriately Dressed. No: Apparent Distress Moderate Sedation - Procedure Monitoring Vital Signs: Procedure Monitoring Vital Signs Temperature 98.5 F 12/09/18 13:37 Pulse Rate 77 12/09/18 13:37 Respiratory Rate 19 12/09/18 13:37 Blood Pressure 141/84 12/09/18 13:37 O2 Sat by Pulse Oximetry (%) 97 12/09/18 13:37 Medical Decision Making - Medical Decision Making 12/09/18 14:08 Patient with history of asthma present with complaint of 24 hour history of persistent cough, no wheezing, nasal congestion and intermittent shortness of breath which has not improved with albuterol rescue inhaler. Exam significant for moderate diffuse wheezing with no acute respiratory distress on exam. Nebulizer treatment with Atrovent and albuterol given. Solu- Medrol 125 mg IM ordered for bronchospasm .rapid flu tests ordered and chest x- ray ordered. Treat based on lab and imaging results 12/09/18 15:36 Rapid flu negative. Chest x-ray shows no acute infiltrate. Patient reported feeling better after nebulizer treatment and Solu-Medrol IM. Patient stable for discharge on nebulizer to use at home, Kathy Julian for cough and prednisone with PCP follow-up *DC/Admit/Observation/Transfer Diagnosis at time of Disposition: Shortness of breath URI (upper respiratory infection) Qualifiers: URI type: unspecified URI Qualified Code(s): J06.9 - Acute upper respiratory infection, unspecified Asthma exacerbation Qualifiers: Asthma severity: mild Asthma persistence: intermittent Qualified Code(s): J45.21 - Mild intermittent asthma with (acute) exacerbation - Discharge Dispostion Disposition: HOME Condition at time of disposition: Stable Decision to Admit order: No - Prescriptions Prescriptions: Albuterol 2.5/Ipratropium 0.5 [Duoneb -] 1 neb NEB Q6H PRN #1 vial PRN Reason: Asthma Benzonatate [Tessalon Pearls -] 100 mg PO TID PRN #21 capsule PRN Reason: Cough Ipratropium [place] 2 spray NS BID PRN #1 spray PRN Reason: nasal congestion Nebulizer and Compressor [Portable Nebulizer System] 1 each MC Q6H PRN #1 each PRN Reason: Asthma Prednisone [Deltasone] 20 mg PO BID 5 Days #10 tablet - Referrals Referrals: Neri Muñiz MD [Primary Care Provider] - - Patient Instructions Printed Discharge Instructions: DI for Asthma -- Adult Additional Instructions: Your chest x-ray shows no pneumonia. Take medication as prescribed as needed for asthma. Follow-up with primary care as needed. - Post Discharge Activity
[2018-12-09] MEDS ORDERED: methylPREDNISolone NA SUCC 125 MG/2 ML VIAL ONE (14:09)
== END 2018-12-09 15:28 | disposition home or self-care (01) ==
LOC: JERFT 13:21
PROC: 3E0F7GC Introduction of Other Therapeutic Substance into Respiratory Tract, Via Natural or Artificial Opening (ICD-10-PCS; principal; 2018-12-09)
PROC: 3E0233Z Introduction of Anti-inflammatory into Muscle, Percutaneous Approach (ICD-10-PCS; 2018-12-09)
DX: J45.21 Mild intermittent asthma with (acute) exacerbation (principal); J06.9 Acute upper respiratory infection, unspecified
CPT/HCPCS: 71046-TC-FY; 84703; 87804; 99281-25